=== PATIENT | male | born 1990 | race Hispanic/Latino ===

== ENCOUNTER 2018-09-30 17:48 | Inpatient (IN) | payer MEDICAID ==
[2018-09-30 17:51] VITALS: BMI 26.8
--- NOTE | 2018-09-30 18:11 | C.PDOC ---
History Of Present Illness Patient is a 28 y/o M, prescreened for detox, presenting requesting detox. He reports using xanax and heroin last night. Denies HI or SI. Denies somatic complaints. Time Seen by Provider: 09/30/18 17:50 Chief Complaint (Nursing): Substance Abuse Past Medical History Vital Signs: Last Vital Signs Temp 98.3 F 09/30/18 17:50 Pulse 88 09/30/18 17:50 Resp 16 09/30/18 17:50 BP 140/85 09/30/18 17:50 Pulse Ox 98 09/30/18 17:50 - Medical History PMH: Denies: Chronic Kidney Disease - [facility] Procedures APPLICATION OF SPLINT (07/13/14) INJECT/INFUSE NEC (01/14/15) OTHER ENDOSCOPY OF SM INTEST (01/25/15) Family History: States: No Known Family Hx - Social History Hx Alcohol Use: Yes (H/O QUIT 2 YRS AGO) Hx Substance Use: Yes (stopped before) - Immunization History Hx Tetanus Toxoid Vaccination: No Hx Influenza Vaccination: No Hx Pneumococcal Vaccination: No Review Of Systems Constitutional: Negative for: Fever, Chills Cardiovascular: Negative for: Chest Pain, Palpitations, Orthopnea Respiratory: Negative for: Cough, SOB with Excertion, Wheezing Gastrointestinal: Negative for: Nausea, Vomiting, Abdominal Pain, Diarrhea, Constipation Genitourinary: Negative for: Dysuria Musculoskeletal: Negative for: Neck Pain Psych: Negative for: Anxiety, Depression Physical Exam - Physical Exam Appears: Well, Non-toxic, No Acute Distress Skin: Normal Color, Warm, Dry Head: Atraumatic, Normacephalic Eye(s): bilateral: Normal Inspection, PERRL, EOMI Neck: Normal Cardiovascular: Rhythm Regular Respiratory: Normal Breath Sounds Gastrointestinal/Abdominal: Soft, No Tenderness, No Distention Extremity: Normal ROM Neurological/Psych: Oriented x3, Normal Speech, Normal Motor ED Course And Treatment - Laboratory Results Result Diagrams: 09/30/18 18:29 O2 Sat by Pulse Oximetry: 98 Medical Decision Making Medical Decision Makin:37PM EKG shows NSR at 64bpm with no acute ST changes. Cxray negative as read by me. Patient pending labs and medical clearance. Disposition - Disposition Disposition: HOSPITALIZED Disposition Time: 18:38 Condition: FAIR Forms: [facility] ([place]an) - Clinical Impression Clinical Impression: Drug dependence, Opioid use disorder Physician Patient Turnover Patient Signed Over To: Larry Last Handoff Comments: pending labs and medical clearance for psych admission
[2018-09-30 18:41] LABS: BASO # 0.1 K/uL (0.0-0.2); EOS # 0.9 K/uL (0.0-0.7); EOS % 9.2 % (0.0-4.0); HEMOGLOBIN 13.8 g/dL (12.0-18.0); LYMPH # 2.9 K/uL (1.0-4.3); LYMPH % 31.5 % (20.0-40.0); MEAN CELL VOLUME 84.1 fL (80.0-94.0); MEAN CORPUSCULAR HEMOGLOBIN 27.3 pg (27.0-31.0); MEAN CORPUSCULAR HGB CONC 32.5 g/dL (33.0-37.0); MEAN PLATELET VOLUME 9.1 fL (7.2-11.7); MONO # 0.5 K/uL (0.0-0.8); MONO % 5.1 % (0.0-10.0); NEUT # 4.9 K/uL (1.8-7.0); NEUT % 53.2 % (50.0-75.0); RBC 5.04 Mil/uL (4.40-5.90); RED CELL DISTRIBUTION WIDTH 13.2 % (11.5-14.5); WHITE BLOOD COUNT 9.3 K/uL (4.8-10.8)
[2018-09-30 18:47] LABS: ALB/GLOB RATIO 1.8 (1.0-2.1); ALBUMIN 4.9 g/dL (3.5-5.0); ALT/SGPT 10 U/L (21-72); AST/SGOT 29 U/L (17-59); BLOOD UREA NITROGEN 11 mg/dL (9-20); CALCIUM 9.3 mg/dl (8.6-10.4); GFR NON-AFRICAN AMERICAN > 60
[2018-09-30 18:50] LABS: URINE BILIRUBIN NEGATIVE (NEGATIVE); URINE BLOOD NEGATIVE (NEGATIVE); URINE CLARITY CLEAR (Clear); URINE COLOR YELLOW (YELLOW); URINE GLUCOSE (UA) NEGATIVE (Normal); URINE PROTEIN NEGATIVE (NEGATIVE); URINE UROBILINOGEN 0.2 mg/dL (0.2-1.0)
[2018-09-30 18:51] LABS: URINE LEUKOCYTE ESTERASE NEGATIVE Leu/uL (Negative)
--- NOTE | 2018-09-30 18:53 | RAD ---
HISTORY: detox admission COMPARISON: None available TECHNIQUE: Chest, one view. FINDINGS: LUNGS: No focal consolidation. Please note that chest x-ray has limited sensitivity for the detection of pulmonary masses. PLEURA: No significant pleural effusion identified. No definite pneumothorax . CARDIOVASCULAR: The cardiomediastinal silhouette appears within normal limits of size. No significant atherosclerotic calcification present. OSSEOUS STRUCTURES: No acute osseous abnormality identified. VISUALIZED UPPER ABDOMEN: Unremarkable. OTHER FINDINGS: Bilateral nipple rings. IMPRESSION: No focal consolidation.
[2018-09-30 18:59] LABS: BARBITURATES, UR NEGATIVE (NEGATIVE); BENZODIAZEPINES, UR NEGATIVE (NEGATIVE); PHENCYCLIDINE, UR NEGATIVE (NEGATIVE)
[2018-09-30 19:01] LABS: OPIATES, UR POSITIVE (NEGATIVE)
--- NOTE | 2018-09-30 19:36 | PCM.BM ---
<PurnimaMiri - Last Filed: 09/30/18 19:35> Treatment Plan Problems - Problems identified on initial assessmt Denial Date Initiated: 09/30/18 Time Initiated: 19:35 Assessment reference: NA Status: Active Defensive Coping Date Initiated: 09/30/18 Time Initiated: 19:35 Assessment reference: NA Status: Active Low Motivation to Change Date Initiated: 09/30/18 Time Initiated: 19:35 Assessment reference: NA Status: Active Treatment assets and liabiliti Patient Assests: ADL independent, negotiates basic needs, cognitively intact Patient Liabilities: substance abuse - Milieu Protocol Maintain good personal hygiene: daily Encourage regular showers, daily Remind patient to perform daily oral care, daily Assist patient to perform ADL's Conduct patient checks and document Observation sheet: Q15 minutes Maintain personal safety: every shift Educate patient to report safety concerns to staff, every shift Monitor environment for contraband/sharps Medication safety: Monitor for expected outcome, potential side effects: every shift, Assess barriers to learning: every shift, Assess readiness for medication education: every shift <Frank Escalera - Last Filed: 10/02/18 13:59> - Diagnosis (1) Opioid use disorder, severe, dependence Status: Acute Interventions: 10/01/18 13:59 * Assess 7x/week regarding severity of withdrawal * Educate regarding risks, benefits, side effects and alternatives of medications * Use Motivational Interviewing for abstinence * Use CBT for relapse prevention * Medication management for withdrawal symptoms * Encourage medication assisted treatment * <Akilah Pineda - Last Filed: 10/03/18 15:19> Family Contact Family involvement: No known Family/SO - Goals for Treatment Patient goals for treatment: Complete detox and transition to outpatient program. Discharge/Continuing Care - Education Needs Education Needs: Patient Medication, Patient Diagnosis/Disease Process, Patient Coping Skills, Patient Anger Management skills, Patient Placement options, Patient Community resources, Patient Other (AMA risks) - Discharge Discharge Criteria: Free of agitation, No longer exhibiting s/s of withdrawal, Reduction of target symptoms Discharge to:: Other - Additional Comments 10/03/18 15:18 Pt. is being d/c to the hotel he is living in. - Treatment Team Participation Patient/Family/SO Statement: 10/03/18 15:18 Pt. wished to attend outpatient program upon detox completion but instead, is leaving AMA. Discussed with Family/SO: No Was Patient/Family/SO present at Treatment Team Meeting: Yes
[2018-10-01] MEDS ORDERED: Aluminum Hydroxide/Magnesium Hydroxide Susp (30 mL) PO PRN (13:45)
--- NOTE | 2018-10-01 13:46 | PCM.PSYCH ---
Initial Psychiatric Evaluation - Initial Psychiatric Evaluation Type of Admission: Voluntary Legal Status: Capacity Chief Complaint (in patient's own words): "Heroin" History of Present Illness and Precipitating Events: Patient is a 28 year old male, single but has a GF, has no children, currently living in between homes, and works by doing housing repairs. Patient was seen at the [facility] ED on 09/30 and was admitted to the [facility] detox unit for heroin detox. On examination, patient appears disheveled and uncomfortable but is open to questioning. He complains of profuse sweating and body aches that have kept him up. He uses 3-5 bags of heroin daily by sniffing, with his last use being on 09/30, and has been using heroin for the last 10 years. He reports a period of sobriety lasting 1 year and 8 months last year. Patient has previously gone for heroin detox and has been to a rehabilitation unit 4 times in the past. Patient also admits to using 2mg of Xanax 1-2 times a week for the last 4 years, with his longest period of sobriety being a year long. Patient last used Xanax on 09/29. Patient has smoked a pack of cigarettes per day for the last 10 years. He also uses marijuana once a year and drinks socially. He denies suicidal ideations, homicidal ideations, auditory hallucinations, and visual hallucinations. Feels anxious and depressed. PMHx: Eczema (per chart) PsychHx: Denies FMHx: Denies Medications: OTC steroid cream (per chart) Allergies: NKDA Current Medications: Active Medications Generic Name Dose Route Start Last Admin Trade Name Zanderq PRN Reason Stop Dose Admin Clonidine HCl 0.1 mg 09/30/18 19:52 Catapres PO Q8 PRN opiate withdrawal Hydroxyzine HCl 50 mg 09/30/18 19:52 Atarax PO Q6 PRN Anxiety Methadone HCl 20 mg 10/01/18 10:00 10/01/18 09:13 Methadone PO 10/05/18 09:59 20 mg Q24H FAREED Administration Taper Nicotine 1 patch 10/01/18 10:00 10/01/18 09:13 Nicoderm Cq TD 1 patch DAILY FAREED Administration Trazodone HCl 50 mg 09/30/18 19:51 09/30/18 21:33 Desyrel PO 50 mg HS PRN Administration Insomnia Past Psychiatric History - Past Psychiatric History Pertinent Medical Hx (Current Medical&Sleep Prob, Allergies): Allergies Allergy/AdvReac Type Severity Reaction Status Date / Time seafood Allergy Uncoded 09/30/18 17:52 No Known Home Med 09/30/18 Review of Systems - Psychiatric Psychiatric: Abnormal Sleep Pattern, Anhedonia, Anxiety, Depression, Difficulty Concentrating, Irritability. absent: Hallucinations, Homicidal Ideation, Paranoia, Suicidal Ideation Mental Status Examination - Personal Presentation Personal Presentation: Looks stated age - Affect Affect: Constricted - Motor Activity Motor Activity: Calm - Reliability in Providing Information Reliability in Providing Information: Good - Speech Speech: Organized - Mood Mood: Depressed, Anxious - Formal Thought Process Formal Thought Process: No Impairment - Cognitive Functions Orientation: Person, Place, Situation, Time Sensorium: Alert Attention/Concentration: Attentive Estimate of Intelligence: Average Judgement: Intact, as evidence by: Insight regarding need for hospitalization Memory: Recent intact, as evidence by: Ability to recall events of the day, Remote intact, as evidenced by: Abilit to recall sig. life events - Risk Risk: Withdrawal, Diminished functioning - Strength & Assets Inventory Strength & Assets Inventory: Cooperative - Limitations Limitations: Other DSM 5 DX - DSM 5 DSM 5 Diagnosis: Opioid withdrawal Opioid use d/o - severe Depressive d/o - unspecified - Recommended/Plan of Treatment Treatment Recommendations and Plan of Treatment: Taper with Subutex Gabapentin for augmentation if needed As needed medications All risks, benefits and alternatives of the meds discussed, and the pt agreed and understood. Attend groups and activities Supportive therapy and psychoeducation NE for abstinence CBT for relapse prevention Encourage MAT Refer to rehab or IOP, and self-help groups Teach healthy lifestyle methods, i.e. diet, exercise, meditation Smoking cessation with NE Nicotine patch if needed 34 min Projected ELOS: 4-5 days
--- NOTE | 2018-10-02 11:48 | PCM.PYCHPN ---
Psychiatric Progress Note - Psychiatric Progress Note Patient seen today, length of contact: 18 min Patient Chief Complaint: "I'm sick" Problems Identified/Issues Discussed: The pt is seen, chart reviewed, case discussed with staff. The pt is compliant with medications and reports no side-effects. Symptoms are improving but needs more time to stabilize. Additional dose given, plus more comfort meds Pt attends groups and activities. Support given, psycho-education provided. After care discussed. Medication Change: Yes (detox changes daily) Medical Record Reviewed: Yes Mental Status Examination - Cognitive Function Orientation: Person, Place, Situation, Time Memory: Intact Attention: Poor Concentration: Poor Association: WNL Fund of Knowledge: WNL - Mood Mood: Depressed, Anxious - Affect Affect: Constricted - Speech Speech: Appropriate - Formal Thought Process Formal Thought Process: No Impairment - Suicidal Ideation Suicidal Ideation: No - Homicidal Ideation Homicidal Ideation: No Goal/Treatment Plan - Goal/Treatment Plan Need for Continued Stay: Discharge may exacerbated symptoms, Severe functional impairment Progress Toward Problem(s) and Goals/Treatment Plan: Taper with methadone Additional dose given Gabapentin for augmentation As needed medications All risks, benefits and alternatives of the meds discussed, and the pt agreed and understood. Attend groups and activities Supportive therapy and psychoeducation PR for abstinence CBT for relapse prevention Encourage MAT Refer to rehab or IOP, and self-help groups Teach healthy lifestyle methods, i.e. diet, exercise, meditation Smoking cessation with PR Nicotine patch if needed
--- NOTE | 2018-10-02 22:01 | CARD ---
APPROVED REPORT Date of service: 09/30/2018 EKG Measurement Heart [id number] <Conclusion> Normal sinus rhythm Possible Left atrial enlargement Borderline ECG
[2018-10-03 10:41] VITALS: RESP 18
[2018-10-03 14:22] VITALS: BP 101/62; PULSE 67; TEMP 97.8; O2SAT 97
--- NOTE | 2018-10-03 14:31 | PCM.PYCHPN ---
Psychiatric Progress Note - Psychiatric Progress Note Patient seen today, length of contact: 17 min Patient Chief Complaint: "I'm sick" Problems Identified/Issues Discussed: The pt is seen, chart reviewed, case discussed with staff. The pt is compliant with medications and reports no side-effects. Symptoms are improving but needs more time to stabilize. Additional dose given, plus more comfort meds Pt attends groups and activities. Support given, psycho-education provided. After care discussed. Medication Change: Yes (detox changes daily) Medical Record Reviewed: Yes Mental Status Examination - Cognitive Function Orientation: Person, Place, Situation, Time Memory: Intact Attention: Poor Concentration: Poor Association: WNL Fund of Knowledge: WNL - Mood Mood: Depressed, Anxious - Affect Affect: Constricted - Speech Speech: Appropriate - Formal Thought Process Formal Thought Process: No Impairment - Suicidal Ideation Suicidal Ideation: No - Homicidal Ideation Homicidal Ideation: No Goal/Treatment Plan - Goal/Treatment Plan Need for Continued Stay: Discharge may exacerbated symptoms, Severe functional impairment Progress Toward Problem(s) and Goals/Treatment Plan: Taper with methadone Additional dose given Gabapentin for augmentation As needed medications All risks, benefits and alternatives of the meds discussed, and the pt agreed and understood. Attend groups and activities Supportive therapy and psychoeducation RI for abstinence CBT for relapse prevention Encourage MAT Refer to rehab or IOP, and self-help groups Teach healthy lifestyle methods, i.e. diet, exercise, meditation Smoking cessation with RI Nicotine patch if needed
--- NOTE | 2018-10-04 21:30 | PCM.PYCHDC ---
Mental Status Examination - Mental Status Examination Orientation: Person Discharge Summary - Discharge Note Consultations:: List each consultation separately and include: 1. Reason for request. 2. Findings. 3. Follow-up Summary of Hospital Course include:: 1. Description of specific treatment plan utilized for patients during their course of treatmen. 2. Summarize the time- course for resolution of acute symptoms and/or regressed behaviors. 3. Describe issues identified and worked on during hospitalization. 4. Describe medication utilized. 5. Describe medical problems identified and treated. 6. Reassessment of suicide risk Summary of Hospital Course: Patient is a 28 year old male, single but has a GF, has no children, currently living in between homes, and works by doing housing repairs. Patient was seen at the [facility] ED on 09/30 and was admitted to the [facility] detox unit for heroin detox. On examination, patient appears disheveled and uncomfortable but is open to questioning. He complains of profuse sweating and body aches that have kept him up. He uses 3-5 bags of heroin daily by sniffing, with his last use being on 09/30, and has been using heroin for the last 10 years. He reports a period of sobriety lasting 1 year and 8 months last year. Patient has previously gone for heroin detox and has been to a rehabilitation unit 4 times in the past. Patient also admits to using 2mg of Xanax 1-2 times a week for the last 4 years, with his longest period of sobriety being a year long. Patient last used Xanax on 09/29. Patient has smoked a pack of cigarettes per day for the last 10 years. He also uses marijuana once a year and drinks socially. He denies suicidal ideations, homicidal ideations, auditory hallucinations, and visual hallucinations. Feels anxious and depressed. PMHx: Eczema (per chart) PsychHx: Denies FMHx: Denies Medications: OTC steroid cream (per chart) Allergies: NKDA - Diagnosis (1) Opioid use disorder, severe, dependence Status: Acute - Final Diagnosis (DSM 5) Condition upon Discharge: FAIR Disposition: AGAINST MEDICAL ADVICE
== END 2018-10-03 15:31 | disposition left against medical advice (07) | DRG 770 ==
LOC: C.ER 17:48 → C.7D 19:04
PROVIDERS: ADMIT Psychiatry & Neurology Psychiatry; ATTEND Psychiatry & Neurology Psychiatry
PROC: GZ56ZZZ Individual Psychotherapy, Supportive (ICD-10-PCS; principal; 2018-09-30)
DX: F11.23 Opioid dependence with withdrawal (principal); F32.9 Major depressive disorder, single episode, unspecified; F13.90 Sedative, hypnotic, or anxiolytic use, unspecified, uncomplicated; F12.90 Cannabis use, unspecified, uncomplicated